=== PATIENT | male | born 1990 | race Two or more races ===

== ENCOUNTER 2018-05-23 12:14 | Emergency (ER) | payer SELFPAY ==
[2018-05-23 12:37] VITALS: BP 126/79; PULSE 55; TEMP 98.6; BMI 27.4
--- NOTE | 2018-05-23 14:09 | PDOC ---
History of Present Illness - General Chief Complaint: Injury Stated Complaint: INJURY Time Seen by Provider: 05/23/18 13:21 History Source: Patient Exam Limitations: No Limitations - History of Present Illness Initial Comments: 05/23/18 13:35 27 yr male with c/o getting kicked in the right leg on Sunday playing soccer and states he dislocated his knee, that his team mate pushed it back in. Pt now has continued pain and bruising to the leg. Occurred: reports: other (5 days ago ) Severity: reports: moderate Pain Location: reports: lower extremity (right) Past History - Past Medical History Allergies/Adverse Reactions: Allergies Allergy/AdvReac Type Severity Reaction Status Date / Time No Known Allergies Allergy Verified 05/23/18 12:34 Home Medications: Ambulatory Orders NK [No Known Home Medication] 05/23/18 COPD: No - Immunization History Immunization Up to Date: Yes - Suicide/Smoking/Psychosocial Hx Smoking History: Never smoked Review of Systems - Review of Systems Able to Perform ROS?: Yes Is the patient limited Greek proficient: Yes Musculoskeletal: Yes: Symptoms Reported Integumentary: Yes: Symptoms Reported, Bruising *Physical Exam - Vital Signs Last Vital Signs Temp Pulse Resp BP Pulse Ox 98.6 F 55 L 18 126/79 98 05/23/18 12:34 05/23/18 12:34 05/23/18 12:34 05/23/18 12:34 05/23/18 12:34 - Physical Exam General Appearance: Yes: Nourished HEENT: positive: EOMI, FREEMAN Neck: positive: Supple. negative: Tender Respiratory/Chest: positive: Lungs Clear, Normal Breath Sounds Cardiovascular: positive: Regular Rhythm, Regular Rate Gastrointestinal/Abdominal: positive: Normal Bowel Sounds, Soft. negative: Tender Musculoskeletal: positive: Normal Inspection Integumentary: positive: Normal Color, Dry, Ecchymosis, Bruising (right inner thigh, knee) Neurologic: positive: Fully Oriented, Alert, Normal Mood/Affect, Normal Response , Motor Strength 5/5 ED Treatment Course - RADIOLOGY Radiology Studies Ordered: Category Date Time Status FEMUR-RIGHT [RAD] Stat Radiology 05/23/18 13:31 Ordered KNEE 3 POS-RIGHT [RAD] Stat Radiology 05/23/18 13:31 Ordered LEG TIB/FIB-RIGHT [RAD] Stat Radiology 05/23/18 13:31 Ordered Medical Decision Making - Medical Decision Making 05/23/18 14:16 cc: pain swelling bruising to right leg after soccer injury 5 days ago pt ambulating with limp 05/23/18 14:[address] Esparza, Dr Sam in hospital will come eval pt xrays reviewed 05/23/18 14:30 05/23/18 14:34 05/23/18 18:36 seen and examined in ER by . pt to be dc home crutches follow up in office. *DC/Admit/Observation/Transfer Diagnosis at time of Disposition: Contusion of leg, right Qualifiers: Encounter type: initial encounter Qualified Code(s): S80.11XA - Contusion of right lower leg, initial encounter - Discharge Dispostion Disposition: HOME Condition at time of disposition: Good - Referrals Referrals: Terrell Sam MD [Staff Physician] - - Patient Instructions Additional Instructions: elevate and apply warm compresses to the area of bruising every 3-4hrs for 20 minutes keep bishnu wrap on the knee while awake remove to sleep use crutches to ambulate no soccer follow with the orthopedist next week call tomorrow to make appointment take motrin for pain (over the counter motrin, ibuprofen or advil) Eleve y aplique compresas tibias en el kade de moretones cada 3-4 horas sofía 20 minutos mantn el envoltorio del as en la rodilla mientras ests despierto qutate el sueo usar muletas para deambular no futbol siga con el ortopedista la prxima semana llame maana para hacer octavio lizzette eduardo motrin para dalor - Post Discharge Activity
--- NOTE | 2018-05-23 17:27 | CON.ORTH ---
Consult - History of Present Illness Chief Complaint: RLE pain History of Present Illness: 27y M was injured playing soccer Sat -felt the knee come out of place and some other player pushed it back in (may have been patella but pt not sure) -now w persistent swelling and bruising -feels pain walking -improved at rest -no radicular symptoms -no mechanical symptoms - History Source History Provided By: Patient, Friend Limitations to Obtaining History: No Limitations - Smoking History Smoking history: Never smoked Home Medications - Allergies Allergies/Adverse Reactions: Allergies Allergy/AdvReac Type Severity Reaction Status Date / Time No Known Allergies Allergy Verified 05/23/18 12:34 - Home Medications Home Medications: Ambulatory Orders NK [No Known Home Medication] 05/23/18 Physical Exam for Ortho Vital Signs: Vital Signs Temperature 98.6 F 05/23/18 12:34 Pulse Rate 55 L 05/23/18 12:34 Respiratory Rate 18 05/23/18 12:34 Blood Pressure 126/79 05/23/18 12:34 O2 Sat by Pulse Oximetry (%) 98 05/23/18 12:34 Constitutional: Yes: Well Nourished, No Distress, Calm Extremities: Yes: Other (RLE shows diffuse ecchymosis about thigh knee and leg. Tender diffusely about knee. ROM 10-70. Mild effusion. Ligament exam limited by guarding. 2+ dp pulse. EHL FHL TA G S intact. Sens int to LT.) Problem List - Problems (1) Contusion of leg, right Assessment/Plan: I reviewed today's findings with Fuad -advised he most likely dislocated patella -use crutches -use ice and nsaids -use compressive wrap -will plan to follow up next week in office -can consider MRI Code(s): S80.11XA - CONTUSION OF RIGHT LOWER LEG, INITIAL ENCOUNTER Qualifiers: Encounter type: initial encounter Qualified Code(s): S80.11XA - Contusion of right lower leg, initial encounter
== END 2018-05-23 16:15 | disposition home or self-care (01) ==
LOC: JERFT 12:14
DX: M25.561 Pain in right knee (principal); S80.11XA Contusion of right lower leg, initial encounter; W50.1XXA Accidental kick by another person, initial encounter; Y93.66 Activity, soccer; Y92.322 Soccer field as the place of occurrence of the external cause
CPT/HCPCS: 73552-TC-RT-FY; 73562-TC-RT-FY; 73590-TC-RT-FY; 99281-25